=== PATIENT | female | born 1980 | race Caucasian/White ===

== ENCOUNTER 2017-01-11 11:06 | Day surgery (SDC) | payer BC, OTHER ==
[~2017-01-11] VITALS: Ht 172.7 cm; Wt 82.0 kg
[~2017-01-11 11:06] MED LIST: AUGMENTIN PO; No meds per pt.; PREG150C PO; TRAM-385 PO; TRAM-47 PO; [UNRECOGNIZED DRUG - REMARK]
[2017-01-11] MEDS ORDERED: LACTATED RINGERS 1,000 ML IV SCH (11:29)
[2017-01-11 11:50] VITALS: BP 125/87
[2017-01-11] MEDS ORDERED: MIDAZOLAM 1 MG/ML, 2ML ONE (12:14)
[2017-01-11] MEDS ORDERED: FENTANYL PF 100 MCG/2ML ONE ×3 (12:14→16:11)
[2017-01-11] MEDS ORDERED: GLYCOPYRROLATE 0.2MG/1ML, 5ML ONE (15:10)
[2017-01-11] MEDS ORDERED: ONDANSETRON 2MG/ML, 2ML ONE ×2 (15:10→16:47)
[2017-01-11] MEDS ORDERED: NEOSTIGMINE 1 MG/ML, 10ML ONE (15:10)
[2017-01-11] MEDS ORDERED: ROCURONIUM 10 MG/ML ONE (15:10)
[2017-01-11] MEDS ORDERED: PROPOFOL 10 MG/ML, 20ML ONE (15:10)
[2017-01-11] MEDS ORDERED: SUCCINYLCHOLINE 20 MG/ML, 10ML ONE (15:10)
[2017-01-11] MEDS ORDERED: CEFAZOLIN 1,000 MG ONE (15:10)
[2017-01-11] MEDS ORDERED: OXYcodone 5 MG/5 ML ORAL.SOL UDC PO PRN (15:30)
[2017-01-11] MEDS ORDERED: LABETALOL 5MG/ML, 20ML IV PRN (15:30)
[2017-01-11] MEDS ORDERED: ONDANSETRON 2MG/ML, 2ML IVPush PRN (15:30)
[2017-01-11] MEDS ORDERED: PROMETHAZINE 25 MG/ML, 1ML IV PRN (15:30)
[2017-01-11] MEDS ORDERED: ACETAMINOPHEN 325 MG TABLET PO PRN (15:30)
[2017-01-11] MEDS ORDERED: MIDAZOLAM 1 MG/ML, 2ML IV PRN (15:30)
[2017-01-11] MEDS ORDERED: HYDROmorphone 1 MG/ML, 1ML IV PRN (15:30)
[2017-01-11] MEDS ORDERED: hydrALAzine 20 MG/ML, 1ML IV PRN (15:30)
[2017-01-11] MEDS ORDERED: DIAZEPAM 5 MG/ML, 2ML IVPush PRN (15:30)
[2017-01-11] MEDS ORDERED: MEPERIDINE/PF 25MG/0.5ML IVPush PRN (15:30)
[2017-01-11] MEDS ORDERED: OXYcodone 5 MG/5 ML ORAL.SOL UDC ONE (16:11)
[2017-01-11] MEDS ORDERED: ACETAMINOPHEN 650 MG/20.3 ML UDC ONE (16:11)
[2017-01-11] MEDS: FENTANYL PF 100 MCG/2ML IV PRN ×3 (16:15→17:09)
[2017-01-11] MEDS ORDERED: ROPIvacaine/PF 0.2%, 100ML 550 ML (check volume) INJ ONE (16:30)
== END 2017-01-11 18:43 ==
LOC: OUT 11:06
PROVIDERS: ATTEND Orthopaedic Surgery
DX: T84.84XA Pain due to internal orthopedic prosthetic devices, implants and grafts, initial encounter (principal); Y83.8 Other surgical procedures as the cause of abnormal reaction of the patient, or of later complication, without mention of misadventure at the time of the procedure; Y92.89 Other specified places as the place of occurrence of the external cause
CPT/HCPCS: 20680; 73620; 76000; J0330; J0690; J2250; J2405; J2704; J2710; J2795; J3010; J3490